=== PATIENT | female | born 1995 | race Caucasian/White ===

== ENCOUNTER → 2020-08-23 | Outpatient (CLI) | payer BC ==
[2020-08-23 15:56] LABS: MEAN CORPUSCULAR HGB CONC 32.1 g/dl (32.0-36.5); MEAN CORPUSCULAR VOLUME 80.9 fl (80.0-96.0); PLATELET COUNT, AUTOMATED 209 10^3/uL (150-450); RED BLOOD COUNT 3.46 10^6/uL (4.00-5.40)
== END ==
LOC: M LAB 14:23
PROVIDERS: ATTEND Advanced Practice Midwife
DX: Z34.82 Encounter for supervision of other normal pregnancy, second trimester (principal); Z3A.00 Weeks of gestation of pregnancy not specified

== ENCOUNTER → 2020-08-23 | Outpatient (CLI) | payer BC ==
--- NOTE | 2020-08-24 17:56 | REP ---
INDICATION: F/U ANATOMY. COMPARISON: Comparison study [facility].. TECHNIQUE: Transabdominal obstetric sonography FINDINGS: Scanning through the gravid uterus demonstrates a viable single intrauterine gestation in cephalic lie. motion is observed and heart rate is recorded at 143 beats per minute. A posterior placenta is seen, grade 1, without evidence of placenta previa. Closed cervical length is measured at 4.0 cm transabdominally. No extrauterine abnormality is observed. Amniotic fluid is subjectively normal. No anomaly is seen. The following anatomic structures are identified and felt to be sonographically unremarkable: cranium, choroid plexus, cavum, cerebellum and posterior fossa, face and profile, lungs, left and right ventricular outflow tract views, diaphragm, left-sided stomach, abdominal wall cord insertion, three-vessel umbilical cord, right kidney, urinary bladder, spine, and upper and lower extremities. No normal left kidney is seen. There is a multi cystic mass in the mid to lower abdomen. 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 Biometry chart: BPD 7.1 cm, 28 weeks 2 days Head circumference 25.9 cm, 28 weeks 1 day Abdominal circumference 23.4 cm, 27 weeks 5 days Femur length 5.1 cm, 27 weeks 3 days Humeral length 4.8 cm, 28 weeks 0 days HC AC ratio normal 1.11 Cephalic index normal 0.76 Estimated weight 1118 g, 2 lb 7 oz, 73rd percentile for 26 weeks 6 days IMPRESSION: Viable single intrauterine gestation at 28 weeks 0 days by today's composite sonographic criteria. SHREYAS by today's sonography November 15, 2020. No complication identified. Expected gestational age estimate based on prior obstetric sonography is 26 weeks 6 days, prior sonographic SHREYAS November 23, 2020. 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 There is a fairly large multi-cystic mass is seen in the abdomen, up to 4 cm in diameter. <Electronically signed by Ronald Munguia > 08/24/20 [id number]
== END ==
LOC: M WHC 12:49
PROVIDERS: ATTEND Advanced Practice Midwife
DX: Z34.82 Encounter for supervision of other normal pregnancy, second trimester (principal); Z3A.28 28 weeks gestation of pregnancy

== ENCOUNTER → 2020-10-18 | Outpatient (REF) | payer BC | LOC: M LAB REF 16:19 | PROVIDERS: ATTEND Advanced Practice Midwife | DX: Z34.83 Encounter for supervision of other normal pregnancy, third trimester (principal); Z3A.00 Weeks of gestation of pregnancy not specified ==

== ENCOUNTER 2020-11-16 17:04 | Outpatient (CLI) | payer BC ==
[~2020-11-16] VITALS: Ht 162.6 cm; Wt 79.1 kg
[2020-11-16 17:22] VITALS: BP 115/75
[2020-11-16] MEDS ORDERED: FERR325T3 PO (18:01)
[2020-11-16] MEDS ORDERED: PRENTAB9 PO (18:01)
--- NOTE | 2020-11-16 19:15 | IPN ---
PROGRESS NOTE DATE: 11/16/2020 SUBJECTIVE: Ama is a 25-year-old, 2, para 0-0-1-0, at 39 weeks gestation by first trimester ultrasound, EDC of 11/23/20. She presents to labor and delivery today with report of a constant feeling of cramping in the pelvic region that wraps around the back that started at approximately 1400. It feels better when she stands up. It worsens when she tries to lie down or get up from a seated position. She does deny vaginal bleeding, leakage of fluid, painful contractions. The fetus has been active. Her care was initiated at [facility] in the first trimester. Her course was complicated by a fetus with a left kidney that is multicystic and dysplastic, a large for gestational age fetus and undetermined gestational diabetes. OBSTETRIC HISTORY: Spontaneous miscarriage in 2017. OBSTETRIC LABS: O positive, antibody screen negative, rubella equivocal, VDRL negative, Hep B negative. Hep C negative. HIV negative. Gonorrhea and Chlamydia negative. Gestational diabetic screening normal at 135, no three hour glucose tolerance test performed. GBS is negative. Urine culture: Mixed normal sol. PAST MEDICAL HISTORY: Noncontributory. PAST SURGICAL HISTORY: None. FAMILY HISTORY: Noncontributory. SOCIAL HISTORY: The patient is single. However, the father of the baby is involved and at bedside for support. She is a nonsmoker, denies history of sexually transmitted infections, denies history of alcohol use or drug use. No history of abuse, physical, sexual or emotional. ALLERGIES: No known drug allergies. CURRENT MEDICATIONS: vitamin. OBJECTIVE: Temperature 97.4, pulse 89, respirations 18. BP is 115/75. She is alert and oriented x3. She is smiling, laughing and talkative. The heart rate is 130 with moderate variability, positive accelerations, negative decelerations. There is no pattern of regular contractions. Sterile vaginal exam: Fingertip, 50% effaced, ballotable station, posterior, soft, no show with the exam. Her abdomen is gravid, cephalic presentation. Estimated weight 9-1/2 lb. Abdomen is nontender to palpation, no contractions palpated. ASSESSMENT: Intrauterine at 39 weeks. heart rate category 1. Normal discomfort with the , round ligament pain. PLAN: Discharge the patient home. I did review palliative measures to cope with ligament discomfort. I reviewed signs and symptoms of labor, movement counts, access to her care provider. She is to keep her next scheduled appointment. She did report that she has an ultrasound scheduled weekly due to the kidneys. The patient and her partner had their questions answered and do desire discharge home.
== END 2020-11-16 18:29 | disposition home or self-care (01) ==
LOC: M LDO 17:04
PROVIDERS: ATTEND Advanced Practice Midwife
DX: O26.893 Other specified pregnancy related conditions, third trimester (principal); R10.2 Pelvic and perineal pain; Z3A.39 39 weeks gestation of pregnancy

== ENCOUNTER 2020-11-23 15:22 | Inpatient (IN) | payer BC ==
[~2020-11-23] VITALS: Ht 162.6 cm; Wt 79.7 kg
[2020-11-23] VITALS (15 sets, daily range): BP systolic 107–137; BP diastolic 60–86
[~2020-11-23 15:22] MED LIST: FERR325T3 PO; PRENTAB9 PO
[2020-11-23 16:51] LABS: HEMATOCRIT 34.2 % (36.0-47.0); HEMOGLOBIN 10.6 g/dl (12.0-15.5); MEAN CORPUSCULAR HEMOGLOBIN 24.7 pg (27.0-33.0); MEAN CORPUSCULAR VOLUME 79.7 fl (80.0-96.0); PLATELET COUNT, AUTOMATED 179 10^3/uL (150-450); RED BLOOD COUNT 4.29 10^6/uL (4.00-5.40); WHITE BLOOD COUNT 12.5 10^3/uL (4.0-10.0)
[2020-11-23] MEDS ORDERED: OXYTOCIN INJ 10 UNITS/ML VIAL (J2590) IM PRN (17:05)
[2020-11-23] MEDS ORDERED: METHYLERGONOVINE MALEATE 0.2 MG/ML VIAL (J2210) IM PRN (17:05)
[2020-11-23] MEDS ORDERED: miSOPROStol 50MCG 1/2 TABLET PO ONE (17:05)
[2020-11-23] MEDS ORDERED: LIDOCAINE 1% MDV 20ML VIAL INFIL PRN (17:05)
[2020-11-23] MEDS ORDERED: OXYTOCIN DRIP 30 UNITS in IV 1 EA IV PRN (17:05)
--- NOTE | 2020-11-23 18:21 | HPE ---
HISTORY AND PHYSICAL DATE OF ADMISSION: 11/23/2020 ADMITTING DIAGNOSIS: Ama is a 25-year-old 2, para 0-0-1-0. She presents to labor and delivery today for induction of labor for consult with Dr. Restrepo. Her estimated due date is 11/23/2020 based on first trimester ultrasound and she is 40 weeks' gestation. Her care was initiated at [facility]. Her course was complicated by fetus with dysplastic multicystic left kidney. There is no functional renal tissue as well as large for gestational age fetus. OBSTETRIC HISTORY: In 2017 spontaneous miscarriage. OBSTETRIC LABS: O positive, antibody screen negative, rubella equivocal, VDRL nonreactive, hepatitis B surface antigen negative, HIV negative, hepatitis C antibody nonreactive, gonorrhea and chlamydia negative. Gestational diabetic screening 135. GBS is negative. PAST MEDICAL HISTORY: Noncontributory. SURGERIES: None. FAMILY HISTORY: Noncontributory. SOCIAL HISTORY: The patient is single. However, the father of the baby is at bedside and he is supportive. She works as a fountain waitress/waiter. She is a former smoker. She quit four years ago. No alcohol or drug use during her . She denies history of sexually transmitted infections and denies history of abuse, physical, sexual and emotional. ALLERGIES: No known drug allergies. CURRENT MEDICATIONS: vitamin. OBJECTIVE: VITAL SIGNS: Temperature 98.5, pulse 116, respirations 16, blood pressure 136/73. GENERAL: She is alert and oriented times three. She is talkative and smiling. No distress. heart rate is 150 with moderate variability. Positive accelerations, no decelerations. Contractions are occasional. ABDOMEN: Gravid, cephalic presentation. Estimated weight by Paco's maneuver 9-1/2 pounds, 4400 gm. STERILE VAGINAL EXAM: 1.5 cm dilated, 80% effaced, -3 station, soft and posterior. No show with the exam. ASSESSMENT: Intrauterine at 40 weeks gestation. heart rate category 1. Large for gestational age. PLAN: Admit the patient to labor and delivery. Consult with Dr Restrepo regarding IOL versus Primary C/S due to LGA fetus. With EFW at less than 5000grams and a gestational diabetic he recommends initiation of IOL at this time. Routine laboratories. Out of bed ad bhupinder. Regular diet at this time. I did review risks, benefits, and alternatives to induction. The patient has been informed that she is at high risk for section due to the size of the fetus as well as other routine indications for delivery. All of her and her partner's questions have been answered. She has been verbally consented for emergency surgery and blood products if they are necessary. I plan to start misoprostol 50 mcg p.o. for surgical ripening. We will likely start IV Pitocin for labor induction. May consider assisted rupture of membranes during her labor. The patient is desiring an epidural when she is uncomfortable. I do anticipate cervical ripening. MTDD
[2020-11-23] MEDS ORDERED: OXYTOCIN DRIP 30 UNITS in IV 1 EA IV SCH (19:10)
[2020-11-23] MEDS: LR 1,000 ML IV SCH ×2 (21:47→23:30)
[2020-11-23] MEDS ORDERED: FENTANYL 2MCG/ML ROPIVACAINE 0.2% IN 0.9% NACL 100ML IVBAG As Ordered ONE (22:06)
[2020-11-23] MEDS ORDERED: ONDANSETRON 4MG/2ML VIAL IV PRN (23:22)
[2020-11-23] MEDS ORDERED: REFRIGERATOR IV KEYS XX PRN (23:22)
[2020-11-23] MEDS ORDERED: EPIDURAL/PCA KEYS XX PRN (23:22)
[2020-11-23] MEDS ORDERED: NALOXONE INJ 0.4MG/1ML VIAL (J2310 PER 1MG) IV PRN (23:22)
[2020-11-23] MEDS ORDERED: diphenhydrAMINE 50MG/ML VIAL (J1200) IV PRN (23:22)
[2020-11-23] MEDS ORDERED: EPIDURAL COMMENT XX SCH (23:22)
[2020-11-23] MEDS ORDERED: FENTANYL/ROPIVACAINE/NACL BAG 100 ML EPIDURAL SCH (23:22)
[2020-11-23] MEDS ORDERED: LACTATED RINGER'S 1000 ML IV PRN (23:22)
[2020-11-23] MEDS ORDERED: ePHEDrine SULFATE 25 MG/5 ML(5MG/ML) SYRINGE IV PRN (23:22)
[2020-11-23] MEDS ORDERED: ePHEDrine SULFATE 25 MG/5 ML(5MG/ML) SYRINGE As Ordered ONE (23:52)
[2020-11-24] VITALS (20 sets, daily range): BP systolic 106–133; BP diastolic 56–81
[2020-11-24] MEDS: LR 1,000 ML IV SCH (02:30)
[2020-11-24 04:46] LABS: CORD GAS ABE A -5.9; CORD GAS ABE V -5.1; CORD GAS HCO3 A 22.7 MEQ/L; CORD GAS HCO3 V 20.5 MEQ/L; CORD GAS O2 SAT A 23.9 %; CORD GAS O2 SAT V 80.9 %; CORD GAS PCO2 A 57.5 mmHg; CORD GAS PCO2 V 39.8 mmHg; CORD GAS PH A 7.215 UNITS; CORD GAS PH V 7.329 UNITS; CORD GAS PO2 V 38.1 mmHg; CORD GAS SBC A 18.1 MEQ/L; CORD GAS TCO2 A 24.5 MEQ/L; CORD GAS TCO2 V 21.7 MEQ/L
[2020-11-24] MEDS ORDERED: ACETAMINOPHEN 500 MG TAB PO PRN (05:20)
[2020-11-24] MEDS ORDERED: IBUPROFEN 800 MG TAB PO PRN (05:20)
[2020-11-24] MEDS ORDERED: DOCUSATE SODIUM 100MG CAPSULE PO PRN (05:20)
[2020-11-24] MEDS ORDERED: IBUPROFEN 600MG TAB PO PRN (05:20)
[2020-11-24] MEDS ORDERED: ANUSOL HC CREAM 30GM TOP PRN (05:20)
[2020-11-24] MEDS ORDERED: METHYLERGONOVINE MALEATE 0.2 MG TAB PO PRN (05:20)
[2020-11-24] MEDS ORDERED: MEASLES,MUMPS,RUBELLA VACCINE INJ (MMR-II) (90707) SC SCH (05:20)
[2020-11-24] MEDS ORDERED: ACETAMINOPHEN TAB 650MG DOSE (2X325MG) PO PRN (05:20)
[2020-11-24] MEDS ORDERED: RHOGAM 300 MCG (1500 IU) INJ (J2790) IM SCH (05:20)
[2020-11-24] MEDS ORDERED: DIBUCAINE 1% OINTMENT 30GM TOP PRN (05:20)
[2020-11-24] MEDS: PRENATAL VITAMINS CHEWABLE TABLET PO SCH (08:45)
--- NOTE | 2020-11-24 09:31 | DN ---
DELIVERY NOTE DATE OF DELIVERY: 11/24/2020 TIME OF : 0434. GENDER: Female. APGARS: 7 and 9. LACERATIONS: Small right labial laceration, small left vaginal abrasion and periurethral laceration. ANESTHESIA: Epidural. ESTIMATED BLOOD LOSS: 400 mL. COUNTS: Correct. DESCRIPTION OF DELIVERY: Ama is a 25-year-old 2, para 1,0,1,1, now. She was admitted to Labor and Delivery for induction of labor due to large for gestational age fetus. One dose of Misoprostol and IV Pitocin was used and the labor did ensue. She utilized an epidural for her labor coping. She had spontaneous rupture of membranes for small amount of clear fluid at 0254. She reached complete dilation at 0321, passive descent was employed. She had a short second stage and she pushed to normal spontaneous vaginal delivery of a live female , OA position with restitution to ROT position at 0434. There was a nuchal cord x1 that was reduced manually at the time of delivery. There was a shoulder dystocia that lasted approximately 90 seconds. Skylar maneuver, suprapubic pressure and combination of Dumont maneuver and Arce maneuver were utilized and the shoulder released. The mouth and naris was bulb suctioned, placed on maternal abdomen, cord was clamped x2 and cut by the father of the baby under my direction. was taken immediately to the warmer for resuscitation and evaluation. Cord gases were obtained. Arterial cord gas 7.215 with base excess of -5.9, venous cord gas pH 7.329, base excess of -5.1. Spontaneous expulsion of intact placenta with three vessel cord by Schultze mechanism was at 0439. Uterine hemostasis was achieved with IV Pitocin rapid infusion and uterine fundal massage. Estimated blood loss 400 mL. Perineum and vagina inspected. Small right labial laceration, small left vaginal abrasion and periurethral laceration were noted. These were repaired with 3-0 Vicryl Rapide in usual fashion. The female weighed 4254 gm, 9 pounds 6 ounces, Apgars 7 and 9. She was moving all extremities without difficulty. The family has named her Kvng. The mom is going to breast feed her daughter. At the close of delivery lap counts, needle counts and instrument counts were correct and verified. [facility]
[2020-11-25 06:00] VITALS: BP 127/75
[2020-11-25] MEDS: PRENATAL VITAMINS CHEWABLE TABLET PO SCH (08:05)
== END 2020-11-25 12:30 | disposition home or self-care (01) | DRG 560 ==
LOC: M LDI 15:22 → M OBS 11-24 06:32
PROVIDERS: ADMIT Advanced Practice Midwife; ATTEND Advanced Practice Midwife
PROC: 3E0P7GC Introduction of Other Therapeutic Substance into Female Reproductive, Via Natural or Artificial Opening (ICD-10-PCS; 2020-11-23)
PROC: 10E0XZZ Delivery of Products of Conception, External Approach (ICD-10-PCS; principal; 2020-11-24)
PROC: 0HQ9XZZ Repair Perineum Skin, External Approach (ICD-10-PCS; 2020-11-24)
PROC: 0UQM0ZZ Repair Vulva, Open Approach (ICD-10-PCS; 2020-11-24)
DX: O36.63X0 Maternal care for excessive fetal growth, third trimester, not applicable or unspecified (principal); O66.0 Obstructed labor due to shoulder dystocia; Z3A.40 40 weeks gestation of pregnancy; O70.0 First degree perineal laceration during delivery; O69.81X0 Labor and delivery complicated by cord around neck, without compression, not applicable or unspecified; Z37.0 Single live birth; O71.82 Other specified trauma to perineum and vulva